=== PATIENT | male | born 1965 | race Caucasian/White ===

== ENCOUNTER 2019-01-20 14:26 | Inpatient (IN) | payer OTHER, SELFPAY ==
[2019-01-20 14:51] LABS: Hemoglobin 13.5 g/dL (14.0-18.0); Mean Corpuscular HGB CONC 33.4 g/dL (32.0-36.0); Mean Corpuscular Hemoglobin 30.7 pg (27.0-31.0); Mean Corpuscular Volume 91.8 fL (78.0-98.0); Mean Platelet Volume 7.3 fL (7.4-10.4); Platelet Count 242 thou/uL (130-400); RBC Distribution Width 11.9 % (11.5-14.5); Red Blood Cell (RBC) Count 4.41 mill/uL (4.70-6.10); White Blood Cell (WBC) Count 24.4 thou/uL (4.8-10.8)
[2019-01-20 15:00] LABS: ALT (SGPT) 50 U/L (8-55); AST (SGOT) 63 U/L (5-34); Albumin 2.9 g/dL (3.5-5.0); Alkaline Phosphatase 58 U/L (40-150); Anion Gap 16 mmol/L (10-20); BUN (Urea Nitrogen) 18 mg/dL (8.9-20.6); Bilirubin, Total 0.6 mg/dL (0.2-1.2); Calc. Creatinine Clearance 0 mL/min (70-130); Calcium 7.8 mg/dL (7.8-10.44); Carbon Dioxide 18 mmol/L (22-29); Chloride 110 mmol/L (98-107); Estimated GFR-MDRD 46; Globulin 2.1 g/dL (2.4-3.5); Potassium 3.9 mmol/L (3.5-5.1); Sodium 140 mmol/L (136-145)
[2019-01-20] MEDS ORDERED: SODIUM CHLORIDE 0.9% IVPB SCH (15:00)
[2019-01-20] MEDS ORDERED: TRANEXAMIC ACID IVPB SCH (15:00)
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
[2019-01-20 15:06] LABS: Glucose 322 mg/dL (70-105)
[2019-01-20 15:14] LABS: Band 17 % (5-11); Lymphocytes 7 % (21-51); MDiff Complete? YES; Monocytes 4 % (0-10); Neutrophil 72 % (42-75); Platelet Morphology Comment Appears Adequate
[2019-01-20 15:25] LABS: INR-International Normal Ratio 1.4
[2019-01-20] MEDS ORDERED: Fentanyl 100 MCG/2 ML VIAL ONE (15:26)
[2019-01-20] MEDS ORDERED: Famotidine/PF 20 mg/2ml Vial ONE (15:27)
[2019-01-20 15:29] LABS: Acetaminophen Less than 6.0 mcg/mL (10.0-30.0); Alcohol Less than 10 mg/dL (Less than 10); Lipase 54 U/L (8-78); Salicylate Less than 8.0 mg/dL (15.0-30.0)
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
[2019-01-20] MEDS ORDERED: ISOVUE-370 76%-LOCM 1 ML ONE (16:11)
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
[2019-01-20] MEDS ORDERED: Albumin 5% 500 ML ONE (16:39)
[2019-01-20] MEDS ORDERED: Calcium Chloride 1 GM/10 ML Abboject SYRINGE ONE (16:55)
[2019-01-20] MEDS ORDERED: Metoclopramide HCl 10 MG/2 ML VIAL ONE (16:55)
[2019-01-20] MEDS ORDERED: Ondansetron PF 4 MG/2 ML Vial ONE (16:55)
[2019-01-20] MEDS ORDERED: Vecuronium 10 MG VIAL ONE (16:55)
[2019-01-20] MEDS ORDERED: PHENYLEPHRINE-NS 100 MCG/ML 10 ML SYRINGE ONE (16:55)
[2019-01-20] MEDS ORDERED: Sodium Bicarb 50 MEQ/50 ML VIAL ONE (17:00)
[2019-01-20] MEDS ORDERED: Sodium Bicarbonate 2.5 MEQ/5 ML VIAL ONE (17:00)
[2019-01-20] MEDS ORDERED: Metoprolol Tartrate 5 MG/5 ML VIAL IVP PRN (17:00)
[2019-01-20] MEDS ORDERED: Dextrose 5% in Water 1,000 ML IV PRN ×2 (17:13→18:48)
[2019-01-20] MEDS ORDERED: hydrALAZINE 20 MG/ML VIAL SLOW IVP PRN ×2 (17:13→18:48)
[2019-01-20] MEDS ORDERED: Dextrose 50% Abboject 50 ML SYRINGE SLOW IVP PRN ×2 (17:13→18:48)
[2019-01-20] MEDS ORDERED: Sodium Chloride 0.9% 1,000 ML IV SCH (17:15)
[2019-01-20] MEDS ORDERED: Ventilator Sedation Protocol 1 EACH FS ONE (17:16)
[2019-01-20] MEDS ORDERED: Insulin Regular 300 UNITS/3 ML VIAL SC PRN (17:19)
[2019-01-20] MEDS ORDERED: fentaNYL Citrate/PF 2,000 MCG in Sodium Chloride 0.9% 60 ML IV SCH (17:20)
[2019-01-20] MEDS ORDERED: Propofol 1,000 MG/100 ML VIAL IV PRN (17:20)
[2019-01-20] MEDS ORDERED: Lorazepam 2 MG/ML VIAL SLOW IVP PRN (17:20)
[2019-01-20] MEDS ORDERED: Propofol BOLUS 1,000 MG/100 ML VIAL IV PRN (17:20)
[2019-01-20] MEDS ORDERED: DISCONTINUE PREVIOUS NARCOTIC PAIN MEDICATIONS AND BENZODIAZEPINES FS SCH (17:20)
[2019-01-20] MEDS ORDERED: Morphine 2 MG/ML SYRINGE SLOW IVP PRN (17:20)
[2019-01-20] MEDS ORDERED: Fentanyl BOLUS 250 ML IVPB PRN (17:20)
[2019-01-20] MEDS ORDERED: Piperacillin/Tazobactam 3.375 GM VIAL ONE (17:29)
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
[2019-01-20] MEDS ORDERED: Ondansetron PF 4 MG/2 ML Vial IVP PRN (18:48)
[2019-01-20 18:49] VITALS: BMI 42.5
[2019-01-20] MEDS ORDERED: Metoprolol Tartrate 5 MG/5 ML VIAL IVP SCH (19:00)
[2019-01-20 19:03] LABS: Actual Bicarbonate (HCO3a) 20.6 mEq/L (22-28); Base Excess (BEa) -6.7 mEq/L (-2.0 to +3.0); CO2 Tension 49.5 mmHg (35.0-45.0); Calcium, Ionized 1.05 mmol/L (1.12-1.30); Carboxyhemoglobin (COHb) 1.3 gm% (0.0-3.0); Potassium - ABG Lab 3.94 mmol/L (3.70-5.30)
[2019-01-20] MEDS: Lactated Ringer's 1,000 ML IV SCH ×3 (19:05→22:14)
--- NOTE | 2019-01-20 19:10 | RAD ---
AP view chest. HISTORY: Ventilator dependent patient. AP view chest is obtained on 01/20/2019. Comparison made to previous exam from earlier in the day. There is a endotracheal tube in place Right-sided chest tubes are in place. A right subclavian central line is in place distal tip overlying the SVC. Extensive right-sided subcutaneous emphysema seen. Cardiomegaly seen. Pulmonary vascular congestion noted. IMPRESSION: interval placement of right subclavian central line.
[2019-01-20 19:13] LABS: pH, Arterial 7.24 (7.35-7.45)
[2019-01-20 19:14] LABS: ALV-art Gradient 585.125 (0-20); Puncture Site LINE
[2019-01-20] MEDS ORDERED: Sodium Bicarb 50 MEQ/50 ML VIAL IVP SCH ×2 (19:30→23:30)
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
[2019-01-20] MEDS: Pantoprazole 40 MG VIAL IVP SCH (19:34)
[2019-01-20] MEDS ORDERED: Sodium Chloride 0.9% 500 ML IV SCH (20:15)
[2019-01-20 20:30] LABS: Actual Bicarbonate (HCO3a) 19.7 mEq/L (22-28); CO2 Tension 39.3 mmHg (35.0-45.0); Calcium, Ionized 1.03 mmol/L (1.12-1.30); Carboxyhemoglobin (COHb) 1.1 gm% (0.0-3.0); Hemoglobin (Hb) 10.4 g/dL (14.0-18.0); O2 Tension (PaO2) 63.4 mmHg (80.0-100.0); Potassium - ABG Lab 3.61 mmol/L (3.70-5.30); pH, Arterial 7.32 (7.35-7.45)
[2019-01-20 20:31] LABS: ALV-art Gradient 457.875 (0-20); Puncture Site LINE
[2019-01-20 20:34] LABS: Hemoglobin 10.3 g/dL (14.0-18.0); Mean Corpuscular Hemoglobin 31.1 pg (27.0-31.0); Mean Corpuscular Volume 88.7 fL (78.0-98.0); Mean Platelet Volume 6.8 fL (7.4-10.4); Platelet Count 217 thou/uL (130-400); Red Blood Cell (RBC) Count 3.31 mill/uL (4.70-6.10); White Blood Cell (WBC) Count 13.2 thou/uL (4.8-10.8)
[2019-01-20 20:51] LABS: Anion Gap 16 mmol/L (10-20); BUN (Urea Nitrogen) 17 mg/dL (8.4-25.7); Band 19 % (5-11); Calc. Creatinine Clearance 129 mL/min (70-130); Calcium 7.5 mg/dL (7.8-10.44); Carbon Dioxide 19 mmol/L (22-29); Chloride 114 mmol/L (98-107); Estimated GFR-MDRD 55; Glucose 143 mg/dL (70-105); Lymphocytes 8 % (21-51); MDiff Complete? YES; Monocytes 4 % (0-10); Neutrophil 69 % (42-75); Potassium 3.7 mmol/L (3.5-5.1); Sodium 145 mmol/L (136-145)
[2019-01-20 21:29] LABS: CKMB 34.1 ng/mL (0-6.6)
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
--- NOTE | 2019-01-20 21:55 | CT ---
NONCONTRAST ENHANCED CT IMAGES BRAIN: HISTORY: Follow-up hemorrhage. Noncontrast enhanced CT images of the brain obtained on 01/20/2019. Comparison made to previous exam from earlier in the day on 01/20/2019. FINDINGS: Again, a left parietal subarachnoid hemorrhage is seen. Small areas of intraparenchymal hemorrhages a re seen in the right medial parietal lobe as well as in the posterior and anterior aspect of the left temporal lobe. Findings compatible with left temporal brain contusions. There is interval development of a small right subdural hemorrhage having increased in size since the previous exam. This subdural collection measures up to 7.7 mm. There is an associated right-sided temporal bone fracture involving the squamosal portion of the temporal bone. There is approximately 3 .5 mm of [id number] shift. IMPRESSION: Right-sided enlarging subdural hematoma with midline shift. Transcribed Date/Time: 01/20/2019 10:06 PM
[2019-01-20 23:10] LABS: Actual Bicarbonate (HCO3a) 18.8 mEq/L (22-28); Base Excess (BEa) -6.9 mEq/L (-2.0 to +3.0); CO2 Tension 38.7 mmHg (35.0-45.0); Hemoglobin (Hb) 10.7 g/dL (14.0-18.0); O2 Tension (PaO2) 71.7 mmHg (80.0-100.0); pH, Arterial 7.31 (7.35-7.45)
[2019-01-20 23:11] LABS: Calcium, Ionized 1.04 mmol/L (1.12-1.30); Carboxyhemoglobin (COHb) 0.8 gm% (0.0-3.0); Puncture Site LINE
[2019-01-20 23:12] LABS: ALV-art Gradient 521.625 (0-20)
[2019-01-21] MEDS: Lactated Ringer's 1,000 ML IV SCH ×2 (03:14→08:38)
[2019-01-21 03:43] LABS: Mean Corpuscular HGB CONC 34.6 g/dL (32.0-36.0); Mean Corpuscular Hemoglobin 30.5 pg (27.0-31.0); Mean Corpuscular Volume 88.3 fL (78.0-98.0); Mean Platelet Volume 7.4 fL (7.4-10.4); Platelet Count 187 thou/uL (130-400); RBC Distribution Width 13.3 % (11.5-14.5); Red Blood Cell (RBC) Count 3.27 mill/uL (4.70-6.10); White Blood Cell (WBC) Count 12.9 thou/uL (4.8-10.8)
[2019-01-21 03:46] LABS: INR-International Normal Ratio 1.2; PTT 28.7 SEC (22.9-36.1); Prothrombin Time 15.4 SEC (12.0-14.7)
[2019-01-21 04:05] LABS: Anion Gap 19 mmol/L (10-20); BUN (Urea Nitrogen) 22 mg/dL (8.4-25.7); Calc. Creatinine Clearance 105 mL/min (70-130); Calcium 7.8 mg/dL (7.8-10.44); Carbon Dioxide 18 mmol/L (22-29); Chloride 113 mmol/L (98-107); Estimated GFR-MDRD 43; Glucose 156 mg/dL (70-105); Sodium 146 mmol/L (136-145)
[2019-01-21 04:10] LABS: Critical Call Chem Troponin I RESULT DECREASING
[2019-01-21 04:31] LABS: CKMB 49.7 ng/mL (0-6.6)
[2019-01-21 04:51] LABS: Band 26 % (5-11); Lymphocytes 9 % (21-51); MDiff Complete? YES; Metamyelocyte 1 % (0-0); Monocytes 1 % (0-10); Neutrophil 62 % (42-75); Reactive Lymphocytes 1 % (0-10)
[2019-01-21 06:54] LABS: Actual Bicarbonate (HCO3a) 17.1 mEq/L (22-28); Base Excess (BEa) -7.1 mEq/L (-2.0 to +3.0); Carboxyhemoglobin (COHb) 0.5 gm% (0.0-3.0); Hemoglobin (Hb) 9.8 g/dL (14.0-18.0); O2 Tension (PaO2) 86.4 mmHg (80.0-100.0); Potassium - ABG Lab 4.51 mmol/L (3.70-5.30); Puncture Site ALINE; pH, Arterial 7.38 (7.35-7.45)
--- NOTE | 2019-01-21 07:07 | CT ---
CT HEAD NONCONTRAST: COMPARISON: Exam of previous day. INDICATION: Intracranial hemorrhage, followup. FINDINGS: Redemonstration of a layering subdural hemorrhage overlying the right convexity, grossly stable in vo lume. Approximately 3 mm leftward midline shift is stable, at the level of the septum pellucidum. T here is mild scattered subarachnoid hemorrhage grossly stable. A small nidus of hyperdensity at the posterior right cerebral hemisphere is similar in appearance. Redemonstration of right parietal bone fracture with extension into the right temporal bone. Scattered paranasal sinus opacification with fluid level again seen. Incidental traversing supportive catheter tubing. There is sulcal effacemen t of the right cerebral hemisphere. IMPRESSION: 1. Bilateral extraaxial hemorrhage is again demonstrated. There is stable mild leftward midline mara ft/subfalcine herniation. 2. Sulcal effacement is present notably involving the right cerebral hemisphere. 3. Stable nidus of hyperdensity of the posterior right cerebral hemisphere which could relate to a s mall volume of parenchymal hemorrhage, similar in appearance. 4. Right calvarial fracture is again seen. 5. Recommend continued imaging followup. POS: DAMIEN
--- NOTE | 2019-01-21 08:00 | RAD ---
Portable frontal chest radiograph: 01/21/2019 COMPARISON: 01/20/2019 HISTORY: Evaluate chest tubes tracheostomy tube in place. Nasogastric tube extends into left upper qu adrant. FINDINGS: Two right-sided chest tubes are present. CT examination of the chest also performed 01/21/2019 demonst rates pneumomediastinum and small right pneumothorax, not seen on this examination secondary to portable technique. Right vascular catheter terminates over region of cavoatrial junction. There is increased density in the bilateral lung bases and right upper lobe region, suggesting infilt rate and/or volume loss. Impression: Lines and tubes as detailed above. Increased density in both lung bases. Chest is much be tter evaluated on CT examination also performed 01/21/2019
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
--- NOTE | 2019-01-21 08:05 | PRG ---
DATE OF SERVICE: 01/21/2019 I saw Mr. Martines in his ICU room this morning. Propofol was started, but it has been weaned off for this examination. He is tachycardic and his blood pressure is around the upper range of normal. On physical examination, Mr. Martines is not opening his eyes, but he is now responding to painful stimuli to supraorbital notch stimulation. He has some extension in both arms. He has a facial grimace. This is improvement from yesterday to stimulation of the nail beds, he does not withdraw. The upper extremities to stimulation of the chest, I do not see any movement. His brainstem reflexes have slightly improved as well. The left pupil is briskly reactive. The right is sluggish. There is a corneal reflex on both sides better on the right than the left. His orogastric tube was moved, but there was no gag. He is breathing over the ventilator. A CT angiogram was reviewed this morning. There is no carotid dissection or occlusion. There is no vertebral dissection or occlusion that I can appreciate. There is no intracranial vascular abnormalities. The small subdural over the right convexity is about the same size as yesterday. It is causing very minimal shift. The basal cisterns are all wide open. There is no uncal herniation. There is no pressure on the third nerve. There was no pressure on the brainstem from any herniation syndrome. After MR imaging of the brain, cervical spine, I could be more specific with the family about prognosis and management. Right now, I do not think he requires any pressure monitor or surgery. Job ID: [id number] [facility]
[2019-01-21 08:08] LABS: Magnesium 1.2 mg/dL (1.6-2.6); Phosphorus 3.8 mg/dL (2.3-4.7)
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
[2019-01-21] MEDS ORDERED: Midazolam HCl 2 mg/2 ml Vial IVP SCH (08:45)
[2019-01-21] MEDS ORDERED: Sodium Bicarbonate 150 MEQ in Dextrose 5% in Water 850 ML IV SCH (08:45)
[2019-01-21] MEDS ORDERED: Magnesium 2 GM/50 ML 2 GM in Premix Bag 1 BAG IVPB SCH (08:45)
[2019-01-21] MEDS ORDERED: ISOVUE-370 76%-LOCM 1 ML ONE (09:00)
[2019-01-21] MEDS ORDERED: Atropine Sulfate 1 mg/10 ml Syringe ONE (09:09)
[2019-01-21] MEDS ORDERED: Fentanyl 100 MCG/2 ML VIAL ONE ×2 (09:17→10:06)
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
[2019-01-21 10:30] LABS: Analyzer IN Cardio OR; Base Excess (BEa) -4.8 mEq/L (-2.0 to +3.0); CO2 Tension 48.8 mmHg (35.0-45.0); Calcium, Ionized 1.06 mmol/L (1.12-1.30); Carboxyhemoglobin (COHb) 0.2 gm% (0.0-3.0); Hemoglobin (Hb) 9.7 g/dL (14.0-18.0); O2 Tension (PaO2) 84.3 mmHg (80.0-100.0); pH, Arterial 7.27 (7.35-7.45)
[2019-01-21 10:30] LABS: Analyzer IN Cardio OR; Base Excess (BEa) -10.9 mEq/L (-2.0 to +3.0); Calcium, Ionized 1.04 mmol/L (1.12-1.30); Carboxyhemoglobin (COHb) 0.3 gm% (0.0-3.0); Hemoglobin (Hb) 11.1 g/dL (14.0-18.0); O2 Tension (PaO2) 72.8 mmHg (80.0-100.0); Potassium - ABG Lab 3.58 mmol/L (3.70-5.30)
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
[2019-01-21 10:35] LABS: CO2 Tension 62.3 mmHg (35.0-45.0); Puncture Site ALINE
[2019-01-21 10:36] LABS: Puncture Site ALINE
[2019-01-21] MEDS: Pantoprazole 40 MG VIAL IVP SCH (10:46)
--- NOTE | 2019-01-21 11:01 | MRI ---
MRI cervical spine history: Trauma minimal response to stimuli. Multiplanar multisequence noncontrast enhanced MRI images cervical spine obtained. Cervical spinal alignment is in normal alignment. No definite evidence of cord masses or lesions seen. Images are less than optimal due to susceptibili ty artifact from NG and tracheostomy tube. C5-6, C6-7 and C7-T1 broad-based disc osteophyte complex is seen compressing the thecal sac. This patel s not result in significant cord compression or signal abnormality. The spinal cord demonstrates no evidence of obvious lesions or traumatic changes. IMPRESSION: Limited exam with lower cervical changes of spondylosis.
[2019-01-21] MEDS ORDERED: Hydrocortisone Sod Succ/PF 100 mg/2 ml Vial IVP SCH (12:30)
[2019-01-21 12:41] VITALS: TEMP 99.1
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
[2019-01-21 15:13] VITALS: BP 154/91
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
== END 2019-01-21 16:20 | disposition short-term general hospital (02) | DRG 957 ==
LOC: EDBD 14:26 → ERS 14:26 → CCU 15:11
PROVIDERS: ADMIT Specialist; ATTEND Specialist
PROC: 5A1945Z Respiratory Ventilation, 24-96 Consecutive Hours (ICD-10-PCS; principal; 2019-01-20)
PROC: 05L Upper Veins, Occlusion (ICD-10-PCS; 2019-01-20)
PROC: 05L Upper Veins, Occlusion (ICD-10-PCS; 2019-01-20)
PROC: 0W9G0ZZ Drainage of Peritoneal Cavity, Open Approach (ICD-10-PCS; 2019-01-20)
PROC: 0W9930Z Drainage of Right Pleural Cavity with Drainage Device, Percutaneous Approach (ICD-10-PCS; 2019-01-20)
PROC: 30233N1 Transfusion of Nonautologous Red Blood Cells into Peripheral Vein, Percutaneous Approach (ICD-10-PCS; 2019-01-20)
DX: S06.6X9A Traumatic subarachnoid hemorrhage with loss of consciousness of unspecified duration, initial encounter (principal); J96.01 Acute respiratory failure with hypoxia; S36.429A Contusion of unspecified part of small intestine, initial encounter; S22.41XA Multiple fractures of ribs, right side, initial encounter for closed fracture; Z68.41 Body mass index [BMI] 40.0-44.9, adult; S27.329A Contusion of lung, unspecified, initial encounter; J93.9 Pneumothorax, unspecified; D62 Acute posthemorrhagic anemia; S02.19XA Other fracture of base of skull, initial encounter for closed fracture; V29.9XXA Motorcycle rider (driver) (passenger) injured in unspecified traffic accident, initial encounter; Y92.410 Unspecified street and highway as the place of occurrence of the external cause; Z87.891 Personal history of nicotine dependence; E66.01 Morbid (severe) obesity due to excess calories; R40.2430 Glasgow coma scale score 3-8, unspecified time
CPT/HCPCS: 36415; 36416; 36430; 70450; 70486; 70496; 70498; 70551; 71045; 71260; 71275; 72125; 72141; 74177; 80048; 80053; 80307; 82533; 82553; 82805; 83690; 83735; 84100; 84484; 85025; 85610; 85730; 86850; 86900; 86901; 93005; 93010; 93306; 94002; 94003; 94640; C9113; G0390; J0131; J0461; J1720; J2250; J2405; J2543; J2704; J2765; J3010; J3475; J3490; J7050; J7070; J7620; P9016; P9035; P9045; P9048; P9059; Q9966; S0028